=== PATIENT | male | born 1965 | race African-American/Black ===

== ENCOUNTER 2025-01-26 10:16 | Outpatient (CLI) | payer BC, SELFPAY ==
--- OUTSIDE RECORDS SUMMARY | 2024-12-09 05:08 | XMS_ITS | Continuity of Care Document ---
Author Organization [facility] Phone Care Team Providers Care Geophysics Teacher Name Role Phone RASHID ARNDT Unavailable RASHID ARNDT Primary Care RASHID ARNDT Primary Attending RASHID ARNDT Admitting RESULTS Patient: MARCIA CORONADO Date of : 1965 0 LABORATORY RESULTS Information is not available LABORATORY NARRATIVE RESULTS Information is not available RADIOLOGY RESULTS ORDER 100: FOOT RT 3V (LOINC : 02902-2) ORDER DATE: December 07, 2024 2:50:00 PM [facility] PERFORMING LAB: [address] [id number] Final Result Date: December 07, 2024 3:10:[address] [place] [address] Name: IVONNE KENNEDY Exam Date: 12/07/2024 : 1965 Age 59 years Gender: M Physician: RASHID ARNDT Facility: [facility] Facility HSV: Outpatient Exam: FOOT RT 3V XR ANKLE 3 OR MORE VIEWS RIGHT, XR FOOT 3 OR MORE VIEWS RIGHT Reason For Study: swelling COMPARISON:None available TECHNIQUE: 3 views of the right ankle were obtained. FINDINGS: Small plantar calcaneal spur minimal posterior enthesopathy spur. Evidence of PAD. 2 well-corticated densities distal to the distal fibula measuring 4 mm and 2 mm are likely old avulsion injuries. No acute fracture seen. Mild DJD. IMPRESSION: No acute fracture. Old avulsion injuries distal fibula. Right foot 3 views Small plantar and posterior calcaneal spurring. Mild to moderate DJD especially midfoot and MTP joint the great toe. No displaced fractures or dislocation. No radiopaque foreign bodies evident. There is hallux valgus deformity. IMPRESSION: Mild degenerative changes. No acute fracture. Electronically signed by: Ivonne Azar MD 12/07/2024 04:35 PM EDT Dictated By: IVONNE AZAR Transcribed By: Transcribed On: 12/07/2024 11:10 AM Electronically signed by: IVONNE AZAR 12/07/2024 Thank you for referring MARCIAIVONNE to [facility]. Legally authenticated by DOE CORONADO MD 2024-12-07 11:10:33 ORDER 200: ANKL 3V RT (LOINC : 66864-8) ORDER DATE: December 07, 2024 2:50:00 PM [facility] PERFORMING LAB: [address] [id number] Final Result Date: December 07, 2024 3:10:[address] [place] [address] Name: IVONNE KENNEDY Exam Date: 12/07/2024 : 1965 Age 59 years Gender: M Physician: RASHID ARNDT Facility: [facility] Facility HSV: Outpatient Exam: ANKL 3V RT XR ANKLE 3 OR MORE VIEWS RIGHT, XR FOOT 3 OR MORE VIEWS RIGHT Reason For Study: swelling COMPARISON:None available TECHNIQUE: 3 views of the right ankle were obtained. FINDINGS: Small plantar calcaneal spur minimal posterior enthesopathy spur. Evidence of PAD. 2 well-corticated densities distal to the distal fibula measuring 4 mm and 2 mm are likely old avulsion injuries. No acute fracture seen. Mild DJD. IMPRESSION: No acute fracture. Old avulsion injuries distal fibula. Right foot 3 views Small plantar and posterior calcaneal spurring. Mild to moderate DJD especially midfoot and MTP joint the great toe. No displaced fractures or dislocation. No radiopaque foreign bodies evident. There is hallux valgus deformity. IMPRESSION: Mild degenerative changes. No acute fracture. Electronically signed by: Ivonne Azar MD 12/07/2024 04:35 PM EDT Dictated By: IVONNE AZAR Transcribed By: Transcribed On: 12/07/2024 11:10 AM Electronically signed by: IVONNE AZAR 12/07/2024 Thank you for referring IVONNE KENNEDY to [facility]. Legally authenticated by DOE CORONADO MD 2024-12-07 11:10:25 PATHOLOGY NARRATIVE RESULTS Information is not available MICROBIOLOGY RESULTS No Micro Labs/Results Exist for Patient BLOOD ADMIN RESULTS Information is not available MEDICATIONS HOME MEDICATIONS Status RXNORM NDC Medication Dose Route Frequency Dates Comments Reported By Updated By Drug Treatment Unknown DISCHARGE MEDICATIONS Status RXNORM NDC Medication Dose Route Frequency Dates Comments Physician Updated By No Discharge Medication Info rmation Available INPATIENT MEDICATIONS Status RXNORM NDC Medication Dose Route Frequency Rat e Quantity Dates Comments Physician Updated By No Inpatient Medication Info rmation Available SOCIAL HISTORY SOCIAL HISTORY SNOMED-CT Social History Element Description Effective Dates Offered Cessation Comment UpdatedBy [id number] Smoking Status Unknown If Ever Smoked SOCIAL HISTORY - Gender Sex: Male SOCIAL HISTORY - Status : status i nformation is not available Intention in Next Year: intention information is not available SOCIAL HISTORY - Sexual Behavior Sexual Orientation Gender Identity SNOMED-CT Description SNO MED -CT Description Activity Level No of Partners Partner Type UpdatedBy Information is not available HEALTH CONCERNS Problems Concern Status Health Concern problem infor mation not available. Smoking Status Status Years Used Consumed packs p er day Health Concern smoking histo ry information not available. Family History Concern Status Health Concern family histor y information not available. ENCOUNTERS ENCOUNTER INFORMATION Reason for Visit M25.471 & M79.89 Admission December 07, 2024 2:40:[address] [id number] Discharge December 07, 2024 2:40:00 PM [facility] DI SCHARGED TO HOME OR SELF CARE ENCOUNTER DIAGNOSES Notes information is not enrique ilable. Code System Diagnosis Onset Date Diagnosis information is not available. 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, RIGHT ANKLE AND FOOT [id number] on December 09, 2024 9:08:37 AM [facility] CARE TEAM Care Geophysics Teacher Role RASHID ARNDT Referring RASHID ARNDT Primary Care RASHID ARNDT Primary Attending RASHID ARNDT Admitting CARE TEAM CARE doctor chiropractic Role on Team Status Start Date End Date Update d By YRIS Muñoz PCP normal December 07, 2024 4:00:00 AM [facility] December 07, 2024 2:40:00 PM [facility] [id number] on December 07, 2024 2:40:43 PM [facility] YRIS Muñoz Referring normal December 07, 2024 4:00:00 AM [facility] December 07, 2024 2:40:00 PM [facility] [id number] on December 07, 2024 2:40:43 PM [facility] YRIS Muñoz Attending normal December 07, 2024 4:00:00 AM [facility] December 07, 2024 2:40:00 PM [facility] [id number] on December 07, 2024 2:40:43 PM [facility] YRIS Muñoz Admitting normal December 07, 2024 4:00:00 AM [facility] December 07, 2024 2:40:00 PM [facility] [id number] on December 07, 2024 2:40:43 PM [facility]
[2025-01-26 11:39] LABS: Alanine Aminotransferase 24 U/L (12-78); Albumin/Globulin Ratio 1.7 (1.1-1.8); Alkaline Phosphatase 82 U/L (38-126); Aspartate Amino Transferase 29 U/L (17-59); Bilirubin,Total 0.8 mg/dl (0.2-1.3); Blood Urea Nitrogen 13 mg/dl (9-20); Calcium 9.1 mg/dl (8.4-10.2); Carbon Dioxide 31 mmol/L (22.0-30.0); Chloride 106 mmol/L (98-107); Estimated Glomerular Filt Rate 69 ml/min (>60); GFR (African American) 83 ML/MIN (>60); Globulin 2.4 g/dL (1.3-3.2); Glucose 79 mg/dl (74-100); Sodium 142 mmol/L (136-145); Total Protein,Serum 6.4 g/dl (6.3-8.2)
[2025-01-26 13:03] LABS: Free T4 (Free Thyroxine) 0.71 ng/dl (0.78-2.19)
[2025-01-27 16:41] LABS: Deamidated Gliadin Abs, IgA 5 units (0-19); Deamidated Gliadin Abs, IgG 4 units (0-19); Tissue Transglutaminase IgA Ab <2 U/mL (0-3); Tissue Transglutaminase IgG Ab 5 U/mL (0-5)
[2025-01-28 08:16] LABS: Endomysial IgA Antibody Negative (Negative)
[2025-01-29 08:18] LABS: Reticulin IgA Antibody Negative titer (Neg:<1:2.5)
[2025-01-30 23:08] LABS: F026-IgE Pork < 0.10 kU/L (Class 0); F027-IgE Beef < 0.10 kU/L (Class 0); F088-IgE Lamb < 0.10 kU/L (Class 0); Immunoglobulin E, Total 22 IU/mL (6-495); O215-IgE Alpha-Gal < 0.10 kU/L (Class 0)
[2025-02-02 11:43] LABS: Miscellaneous Test SCANNED IMAGE
== END 2025-01-26 23:59 | disposition home or self-care (01) ==
LOC: LAB 10:17
PROVIDERS: PCP Family Medicine; Visit Provider Allergy & Immunology
DX: E55.9 Vitamin D deficiency, unspecified (principal); J30.89 Other allergic rhinitis
CPT/HCPCS: 36415; 80053; 82306; 82785; 83516; 83520; 84439; 84443; 84460; 85025; 85652; 86003; 86008; 86140; 86255; 86256; 86376; 86849

== ENCOUNTER 2025-06-03 14:00 | Outpatient (CLI) | payer BC, SELFPAY | END 2025-06-03 23:59 | disposition home or self-care (01) | LOC: LAB 14:01 | PROVIDERS: PCP Family Medicine; Visit Provider Dermatology | DX: L50.8 Other urticaria (principal) | CPT/HCPCS: 36415; 82785; 86003; 86008 ==

== ENCOUNTER 2025-06-21 14:53 | Outpatient (CLI) | payer BC, SELFPAY ==
--- NOTE | 2025-06-21 15:15 | CA_ITS ---
APPROVED REPORT EXAM: Comprehensive 2D, Doppler, and color-flow Echocardiogram Protein Specialist: Shaneka Cortez RT(R) Ht: 6 ft 0 in Wt: 218lbs BSA: 2.21 BP: 127/93 mmHg Indications: chest pain post workout 2D Dimensions LVEF ([place]'s) 53.90 % M: 52 - 72 LV Volume 104.80 mL M: 62 - 150 LV Volume Index 47.4 mL/m2 M: 34 - 74 LA Volume 19.20 mL LA Volume Index 8.69 mL/m2 (M/F) 16-34 EF AP4 56.40 % EF AP2 49.7 % EF BP 53.9 % GL Strain -16.8 % M-Mode Dimensions RVDd 2.32 cm (0.9-2.6) LA Diam 3.62 cm (1.9-4.0) LVDd 5.09 cm (3.5-5.7) LVDs 3.80 cm (3.5-5.7) IVSd 0.83 cm (0.6-1.1) PWd 0.83 cm (0.6-1.1) EF (Teich) 49.70% FS 25.30% EDV (Teich) 123.20 mL ESV (Teich) 62.00 mL LV Diastology E Decel Time 197 (160-240 msec) E/A Ratio 0.7 Mitral Valve MV E Max Geovany. 68.0 (40-130 cm/s) MV A Velocity 91.0 (40-130 cm/s) E/A Ratio 0.74 MV PHT 58.0 ms Left Ventricle The left ventricle is normal size. Left ventricular systolic function is normal. The left ventricular ejection fraction is within the normal range. There is increased left ventricular wall thickness. There is normal LV segmental wall motion. Transmitral Doppler flow pattern suggests impaired LV relaxation. LVEF is 55% Right Ventricle The right ventricle is mildly dilated. The right ventricular systolic function is borderline hypokinetic. Atria The left atrium size is normal. The right atrium size is normal. There is no color Doppler evidence of interatrial shunt. Aortic Valve The aortic valve opens well. There is no hemodynamically significant aortic valvular stenosis. Mild aortic regurgitation is present. Mitral Valve The mitral valve is normal in structure. No evidence of mitral valve stenosis. Mild mitral regurgitation is present. Tricuspid Valve The tricuspid valve leaflets are thin and pliable. Mild tricuspid regurgitation. RVSP is normal. Pulmonic Valve The pulmonary valve is grossly normal in structure. Trace pulmonic valve regurgitation is present. Great Vessels The aortic root is normal in size. IVC is normal in size and collapses >50% with inspiration. Pericardium There is no pericardial effusion. Other Information Study Quality: Fair Conclusion Normal biventricular systolic function. Mild RV dilation. Mild AI, mild MR, mild TR. Electronically signed by : Daniela Barrios MD 06/22/2025 10:09:44
--- OUTSIDE RECORDS SUMMARY | 2025-06-21 15:41 | XMS_ITS | Clinical Summary ---
[facility] Address [address] [place] [address] Care Team Providers Care Hog Ringer Name Role Phone Hernan Pierre MD Primary Care Provider [phone] Allergies No known active allergies Medications acyclovir (ZOVIRAX) 400 MG tablet Take 1 tablet by mouth Every 4 (Four) Hours While Awake. Take no more than 5 doses a day. Active [place]ia-Glucos amine-Vit D (GLUCOSAMINE COMPLEX PO) Take by mouth Daily. Active multivitamin with minerals tablet tablet Take 1 tablet by mouth Daily. 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 Family History Medical History Relation Name Comments Diabetes Father Hypertension Father Stroke Father Relation Name Status Comments Father Alive Social History Tobacco Use Types Packs/Day Years Used Date Smoking Tobacco: Never Smokeless Tobacco: Never Alcohol Use Standard Drinks/Week Comments No 0 (1 standard drink = 0.6 oz pur e alcohol) AUDIT-C Answer Date Recorded Frequency of Alcohol Consumption Never 05/04/2019 Average Number of Drinks Not on file 019 Frequency of Binge Drinking Not on file 04/2019 Abuse Screen Answer Date Recorded Unsafe at Home or Work/School Not on file Feels Threatened by Someone? Not on file 05/2023 Does Anyone Keep You from Co ntacting Others or Doint Things Outside the Home? Not on file 06/04/2023 Physical Sign of Abuse Present Not on file 1 Housing Stability Answer Date Recorded Current Living Arrangements Not on file 05/26 Potentially Unsafe Housing Conditions Not on marisol e 06/04/2023 Family and Community Support Answer Anastacio e Recorded Help with Day-to-Day Activities Not on file 06/04/2023 Lonely or Isolated Not on file 06/04/2023 Employment Answer Date Recorded Do you want help finding or keeping work or a jean carlos b? Not on file 06/04/2023 Disabilities Answer Date Recorded Concentrating, Remembering, or Making Decisions Difficulty Not on file 06/04/2023 Doing Errands Independently Difficulty Not on fi le 06/04/2023 Education Answer Date Recorded Help with school or training? Not on file Preferred Language Not on file 06/04/2023 Sex and Gender Information Value Date Recorded Sex Assigned at Not on file Legal Sex Male 9:06 AM EDT Gender Identity Not on file Sexual Orientation Not on file Last Filed Vital Signs Vital Sign Reading Time Taken Comments Blood Pressure 122/78 05/24/2023 8:30 AM EDT Pulse 89 07/22/2019 8:46 AM EST Temperature - - Respiratory Rate - - Oxygen Saturation 98% 07/22/2019 8:46 AM EST Inhaled Oxygen Concentration - - Weight 96.2 kg (212 lb 1.6 oz) 05/24/2023 8:30 A M EDT Height 184.2 cm (6' 0.5 ) 05/24/2023 8:30 AM EDT Body Mass Index 28.37 05/24/2023 8:30 AM EDT Plan of Treatment Health Maintenance Due Date Last Done Comments TDAP/TD VACCINES (2 - Tdap) 10/25/2006 10/25/1996 COLOGUARD 2012 COLON CANCER SCREENING 5 YEA R SIGMOIDOSCOPY 2012 COLONOSCOPY [address] CANCER SCREENING [address] CT COLONOGRAPHY 2012 FECAL OCCULT BLOOD TEST 2012 FIT Testing (1 year) 2012 Pneumococcal Vaccine 50+ (1 of 1 - PCV) 2017 ZOSTER VACCINE (1 of 2) 2017 ANNUAL PHYSICAL 05/04/2019 HEPATITIS C SCREENING 05/04/2019 INFLUENZA VACCINE 03/26/2025 07/28/2022, , 06/29/2019, Additional history exists Insurance EMPLOYEE Care Teams Hog Ringer Relationship Specialty Start Date End Date Hernan Peirre MD [address] [place] [address] PCP - General Family Medicine 05/04/19
== END 2025-06-21 23:59 | disposition home or self-care (01) ==
LOC: RT 14:53
PROVIDERS: PCP Family Medicine; Visit Provider Nurse Practitioner
DX: I08.3 Combined rheumatic disorders of mitral, aortic and tricuspid valves (principal); R03.0 Elevated blood-pressure reading, without diagnosis of hypertension
CPT/HCPCS: 93306